=== PATIENT | male | born 1945 | race Caucasian/White ===

== ENCOUNTER → 2016-09-10 | Outpatient (CLI) | payer OTHER ==
[~2016-09-10] MED LIST: AMLO5TAB4 PO; AMX500 PO; CALCTAB5 PO; CHOL100010 PO; LISI40TA PO; OXYB5TAB74 PO; WARF5TAB90 PO
[2016-09-10 12:55] VITALS: BP 114/79; PULSE 72; TEMP 36.8; O2SAT 96
--- NOTE | 2016-09-10 14:12 | Radiation Oncology Follow-Up ---
Radiation Oncology Follow-Up Date of Visit Sep 10, 2016. Reason For Visit Annual follow-up Radiation Completion Date finished salvage radiation therapy 03-14-2013 Diagnosis (1) Prostate cancer Status: Resolved Onset Date: 01/01/2010 Location: both lobes of the prostate Histology Subtype: adenocarcinoma Stage: ll Permanent Comment: Rising PSA Prostate biopsy 01/01/2010 [place] 3+3 Status post radical prostatectomy at [facility] performed 10/02/2010 pathologic stage pT2 bN0 Luis Antonio grade 4+3 Post prostatectomy rise in PSA to 0.71 Initiation of hormonal suppression Completion of salvage radiation 03/14/2013 received 7000 cGy Last Edited By: Luiza Eugene on Sep 27, 2015 16:37 Interim History He has been doing well over this past year. PSA values have been excellent. He does continue to have the problem with urinary incontinence. He gave his AUA score 7. He completed expanded prostate cancer index composite for clinical practice and gave a score of 11 of 12 and urinary incontinence symptoms. He was score 1 of 12 and urinary irritation symptoms. He gave a score of 0 of 12 in bowel symptoms he gave a score of 6 of 12 in sexual symptoms. He gave a score of 4 of 12 and hormonal vitality symptoms. His total was 22 of 60. He did some research into urinary incontinence and purchased a clamp. This is applied to the shaft of the penis and has greatly helped him with his ongoing continual urinary incontinence. He had been using 5 to 6 pads per day. He now uses 1-2. He does not require a pad at night. He previously did go to [facility] to receive treatment for the incontinence. He stated that this did not help. Previously had discussed with Dr. Salvador possible surgery for the incontinence. He is currently satisfied with his status by using the penile clamp. He has been using this for a urinary half and is not having any difficulties. Allergies Coded Allergies: No Known Allergies (Verified , 03/24/16) Home Medications Scheduled Amlodipine Besylate (Norvasc), 5 MG PO QAM Calcium (Caltrate), 600 MG PO QAM Cholecalciferol (Vitamin D), 1,000 INTER.UNIT PO QAM Lisinopril (Prinivil), 40 MG PO QAM Oxybutynin Chloride (Ditropan), 5 MG PO BID Warfarin Sodium (Coumadin), 5 MG PO QPM Scheduled PRN Amoxicillin (Amoxicillin), 500 MG PO for prior to dental work Review of Systems Gastrointestinal: Symptoms: WNL Oral: Symptoms: No Problems Respiratory: Symptoms: SOB With Exertion Urinary: Symptoms: Incontinence, Nocturia Comments: nocturia times 1 , "incontience all of the time " Skin: Symptoms: No Problems Other Skin Symptoms: " dry " Physical Exam Vital Signs Date Time Temp Pulse Resp B/P Pulse Ox O2 Delivery O2 Flow Rate FiO2 09/10/16 12:55 36.8 72 20 114/79 96 Pain: Side: Bilateral Pain Location: None Patient Pain Scale: 0 - 10 Initial Pain Intensity: 0.0 Fatigue: None General Appearance: no apparent distress Eyes: normal inspection, EOMI ENT: normal ENT inspection, hearing grossly normal Neck: no adenopathy, thyroid normal Respiratory/Chest: lungs clear, no respiratory distress, no accessory muscle use Cardiovascular: regular rate, rhythm, no gallop, no murmur Abdomen: non tender, soft Anal / Rectum: Prostate bed is flat. No rectal masses no rectal bleeding. Extremities: no pedal edema Neurologic/Psychiatric: no motor/sensory deficits, alert, normal mood/affect Skin: no rash Lymphatic: no adenopathy Laboratory Studies Test 09/10/16 PSA pending Additional Studies He also had a [facility] a copy of this report will be obtained for our chart. Assessment & Plan Plan: PSA was drawn today. He'll be notified as to results. He had a previous DEXA scan which showed some mild osteopenia. He is due for the next DEXA scan in October. He will be away until November. DEXA scan was therefore scheduled for the end of November. We asked him to return to our office in 1 year. He may call if he has any questions or concerns. An order was given for a PSA to be drawn prior to his next visit. [facility] Total Time In Follow-Up I spent 20 minutes speaking to the patient and performing examination. I set 15 minutes reviewing information completing this note. Copy To Jai Wooten III, CRNP; Osmar Salvador MD, Urology; [facility]
== END | disposition home or self-care (01) ==
LOC: C.ONC 12:48
PROVIDERS: ATTEND Radiology Radiation Oncology
DX: Z08 Encounter for follow-up examination after completed treatment for malignant neoplasm (principal); Z92.3 Personal history of irradiation; Z85.46 Personal history of malignant neoplasm of prostate

== ENCOUNTER → 2016-12-01 | Outpatient (CLI) | payer OTHER ==
[~2016-12-01] MED LIST changes: +DTR/5 PO; -OXYB5TAB74 PO
--- NOTE | 2016-12-18 13:37 | CODING QUERY MEDICAL NECESSITY ---
CQSUPPORTING DIAGNOSIS NEEDED A supporting diagnosis is required for the test/procedure performed on this patient in order for us to be reimbursed by the patient's insurance. Please provide a supporting diagnosis for the following test/procedure listed below next to the test name along with your signature. *If there is no additional diagnosis for this patient that would support the following test/procedure please document that below next to the test/procedure. Test(s)/Procedure(s) that require a supporting diagnosis: DOS 12/01/16 BONE MINERAL DENSITY STUDY ORDERED BY KELLEN CHILEL Provider Signature: Date: Thank you Latrice Durand Health Information Management Once completed, please kindly fax back to [phone] For questions please call [phone]
== END | disposition home or self-care (01) ==
LOC: C.MAMM 10:06
PROVIDERS: ATTEND Physician Assistant Medical
DX: C61 Malignant neoplasm of prostate (principal); M85.80 Other specified disorders of bone density and structure, unspecified site; E34.9 Endocrine disorder, unspecified

== ENCOUNTER → 2017-09-11 | Outpatient (CLI) | payer OTHER ==
[2017-09-11 09:54] VITALS: BP 139/88; PULSE 57; TEMP 36.7; O2SAT 97
--- NOTE | 2017-09-11 13:36 | Radiation Oncology Follow-Up ---
Radiation Oncology Follow-Up Date of Visit Sep 11, 2017. Reason For Visit Annual follow-up Radiation Completion Date 03/14/13 Diagnosis (1) Prostate cancer Status: Resolved Onset Date: 01/01/2010 Location: both lobes of the prostate Histology Subtype: adenocarcinoma Stage: ll Permanent Comment: Rising PSA Prostate biopsy 01/01/2010 [place] 3+3 Status post radical prostatectomy at [facility] performed 10/02/2010 pathologic stage pT2 bN0 Luis Antonio grade 4+3 Post prostatectomy rise in PSA to 0.71 Initiation of hormonal suppression Completion of salvage radiation 03/14/2013 received 7000 cGy Last Edited By: Liuza Eugene on Sep 27, 2015 16:37 Interim History His urinary status is stable. He gave an AUA score of 8. This is similar to last year at the level of 7. He completed an expanded prostate cancer index composite for clinical practice and gave a score of 11 of 12 in urinary incontinence symptoms. He gave a score of one of 12 urinary irritation symptoms. He gave a score of 0 of 12 and bowel symptoms. He gave a score of 9 of 12 and sexual symptoms. He gave a score of 2 of 12 in hormonal vitality symptoms. His total was 23 of 60. He had a recheck PSA 04/22/2017. This was less than 0.1. The PSA 09/10/2016 was less than 0.010. He has now been using a penile clamp for the urinary incontinence. He is very satisfied with this method of treatment. He feels that has greatly improved his quality of life. He only has used 2 pads per day. Allergies Coded Allergies: No Known Allergies (Verified , 03/24/16) Home Medications Scheduled Amlodipine Besylate (Norvasc), 5 MG PO QAM Calcium (Caltrate), 600 MG PO QAM Cholecalciferol (Vitamin D), 1,000 INTER.UNIT PO QAM Lisinopril (Prinivil), 40 MG PO QAM Oxybutynin Chloride (Ditropan), 5 MG PO BID Warfarin Sodium (Coumadin), 5 MG PO QPM Scheduled PRN Amoxicillin (Amoxicillin), 500 MG PO for prior to dental work Review of Systems Gastrointestinal: Symptoms: WNL Oral: Symptoms: No Problems, Scant Saliva/Dry Mouth Respiratory: Symptoms: WNL Urinary: Symptoms: Incontinence Comments: always incontinent since surgery Skin: Symptoms: No Problems Other Skin Symptoms: " dry " Physical Exam Vital Signs Date Time Temp Pulse Resp B/P (MAP) Pulse Ox O2 Delivery O2 Flow Rate FiO2 09/11/17 09:54 36.7 57 18 139/88 97 Fatigue: None General Appearance: no apparent distress Eyes: normal inspection, EOMI ENT: normal ENT inspection, hearing grossly normal Neck: no adenopathy, thyroid normal Respiratory/Chest: lungs clear, no respiratory distress, no accessory muscle use Cardiovascular: regular rate, rhythm, no gallop, no murmur Abdomen: non tender, soft, no organomegaly Anal / Rectum: Prostate bed is flat. There is no rectal masses and no rectal bleeding. Extremities: no pedal edema Neurologic/Psychiatric: no motor/sensory deficits, alert, normal mood/affect Skin: warm/dry Pain Management Patient Reports Pain: No Side: Bilateral Pain Location: None Patient Preferred Pain Scale: 0 - 10 Initial Pain Intensity: 0.0 Pain Management Plan He denies pain therefore requires no pain management. Laboratory Laboratory Results: were reviewed, and pertinent findings noted below Laboratory Comments: PSAs are reviewed in the interim history. Pathology Pathology Results: not applicable Imaging Imaging Studies: were reviewed, and pertinent findings noted below Imaging Comments He had previous DEXA scanning. Copies have been sent to his providers. Assessment & Plan Plan: He'll continue use of the penile clamp. He will continue follow-up with urology. He'll continue follow-up with his primary care providers. He will follow with Jai Wooten, nurse practitioner and Monica Azevedo, nurse practitioner at the [facility]. A follow-up appointment with our office was not given. He may continue his recheck PSAs as well as DEXA scanning through his other providers. He may call our office if he has any questions or concerns in the interim. [facility] Total Time In Follow-Up I spent 20 minutes speaking to the patient performing examination. I spent 15 minutes reviewing information in completing this note. Copy To Jai Wooten III, CRNP; Osmar Salvador MD, Urology; Monica Azevedo C.R.N.P.
== END | disposition home or self-care (01) ==
LOC: C.ONC 09:42
PROVIDERS: ATTEND Physician Assistant Medical
DX: Z08 Encounter for follow-up examination after completed treatment for malignant neoplasm (principal); Z92.3 Personal history of irradiation; Z85.46 Personal history of malignant neoplasm of prostate